=== PATIENT | male | born 1940 | race Caucasian/White ===

== ENCOUNTER 2018-10-25 19:36 | Inpatient (IN) ==
[2018-10-25 20:07] LABS: BASOPHILS # (AUTO) 0.02 10*3/UL; BASOPHILS % (AUTO) 0.1 % (0-1); EOSINOPHILS # (AUTO) 0.01 10*3/UL; EOSINOPHILS % (AUTO) 0.1 % (0-8); Hematocrit [HCT] 35.9 % (42.0-52.0); LYMPHOCYTES # (AUTO) 2.48 10*3/uL; MEAN CORPUSCULAR HGB CONC 30.6 g/dL (33-37); MEAN CORPUSCULAR VOLUME 100.3 FL (80-90); MEAN PLATELET VOLUME 9.1 FL (7.4-12.2); MONOCYTES # (AUTO) 1.59 10*3/UL (0.3-0.8); MONOCYTES % (AUTO) 10.4 % (5-15); NEUTROPHILS # (AUTO) 11.12 10*3/UL; NEUTROPHILS % (AUTO) 72.8 % (50-80); RED BLOOD COUNT 3.58 10^6/uL (4.70-6.10)
[2018-10-25 20:12] LABS: BLOOD UREA NITROGEN 42 mg/dL (7-22); BUN/CREATININE RATIO 26.25 (6-20); SERUM ALBUMIN 3.3 g/dL (3.5-4.8)
--- NOTE | 2018-10-25 20:13 | PDOC ---
Upper Extremity Problem HPI - General Chief Complaint: Upper Extremity Problem/Injury Stated Complaint: Right Arm Edema Date Seen by Provider: 10/25/18 Time Seen by Provider: 19:50 Source: POSITIVE: Patient Exam Limitations: POSITIVE: No limitations Nurse's Notes Reviewed & Considered: Yes - History of Present Illness Initial Comments: The patient is a 78-year-old male who is brought to the emergency department by ambulance from the [facility] with complaints of increased right arm pain and swelling. He fell sometime in September and injured his right shoulder. He apparently underwent workup at that time which was all unremarkable. He is currently at [facility] for rehabilitation. He has been undergoing physical therapy and apparently several days ago after therapy his right arm started hurting worse and subsequently became swollen. The swelling has worsened especially in his right hand. He does have continued increased pain in his right shoulder. He denies any chest pain or increased shortness of breath although he does have some shortness of breath chronically. He apparently previously was on oxygen and CPAP however [facility] not [facility]. His oxygen saturations were in the low 80s when EMS arrived. He was placed on O2 per nasal cannula. He denies any fever. He does have edema in both of his legs which she states worsened after he was given prednisone several weeks ago. - Patient Home Medications Home Medications: Home Medications aspirin 81 mg tablet,delayed release 81 mg PO QDAY 09/29/18 cholecalciferol (vitamin D3) 1,000 unit capsule 1,000 unit PO QDAY 09/29/18 docusate sodium 100 mg tablet 100 mg PO BID 09/29/18 escitalopram 10 mg tablet 10 mg PO QDAY 09/29/18 finasteride 5 mg tablet 5 mg PO QDAY 09/29/18 furosemide 40 mg tablet 40 mg PO QDAY 09/29/18 insulin lispro (U- 100) 100 unit/mL subcutaneous pen 1 - 4 unit SUBCUT QAC ml 09/29/18 levothyroxine 75 mcg tablet 75 mcg PO QDAY 09/29/18 losartan 25 mg tablet 50 mg PO QDAY tab 09/29/18 metoprolol tartrate 50 mg tablet 50 mg PO BID 09/29/18 nystatin 100,000 unit/gram topical cream 1 applic TOPICAL QDAY g 09/29/18 oxycodone-acetaminophen 5 mg-325 mg tablet 1 tab PO Q4H PRN tab 09/29/18 polyethylene glycol 3350 17 gram oral powder packet 17 g PO QDAY 09/29/18 tamsulosin 0.4 mg capsule 0.4 mg PO QDAY 09/29/18 - Patient Allergies Allergies/Adverse Reactions: Allergies Allergy/AdvReac Type Severity Reaction Status Date / Time Influenza Virus Vaccines Allergy Other : Verified 10/25/18 19:58 See Comment naproxen Allergy Other : Verified 10/25/18 19:58 See Comment Past Medical History Past Medical History Reviewed: Other (please comment) ([facility] records reviewed) ROS - Limitations ROS Limitations: No Limitations Constitution: DENIES: Fever Cardiovascular: DENIES: Chest Pain Respiratory: REPORTS: Cough Non Productive, Cough Productive, Shortness Of Breath (Chronic shortness of breath) Neurological: REPORTS: Denies Neuro Symptoms Gastrointestinal: DENIES: Abdominal Pain, Nausea, Vomitting Musculoskeletal: REPORTS: Lower Extremity Swelling, Other (Right arm and hand swelling, right shoulder pain) Eyes: REPORTS: Denies Symptoms ENT: REPORTS: Denies Symptoms Skin: DENIES: Rash Upper Extremity Problem Exam - General Appearance General Appearance: POSITIVE: Alert, Cooperative, No Acute Distress - Upper Extremity Upper Extremity: POSITIVE: Other (Examination of the right upper extremity does reveal marked edema in the entire right upper extremity, good palpable radial pulse in the right wrist. Examination the lower extremities reveals marked edema in the lower extremities bilaterally.) Vascular: POSITIVE: No Vascular Compromise - Skin Skin: POSITIVE: Normal Color, No Rash - Neuro / Psych Peripheral Neuro Exam: POSITIVE: Sensation Normal (Sensation normal to the fingertips in the right hand) - HEENT HEENT: POSITIVE: Head Inspection Nml, Eyes Inspection Nml, Ears Inspection Nml, Nose Inspection Nml, Oral/Dental Inspect. Nml, Pharynx Inspect. Nml - Respiratory / CVS Respiratory / CVS: POSITIVE: No Respiratory Distress, Breath Sounds Normal (Decreased breath sounds bilaterally), Regular Rate & Rhythm, Heart Sounds Normal Peripheral Pulses: Radial (R): 2+ - Abdomen Abdomen: Soft: (All Quadrants), Denies Tenderness: (All Quadrants), No Distention: (All Quadrants) Upper Ext Problem Progress - Results Reviewed by me Xrays/CTs/US Reviewed by me: Yes Discussed with Radiologist: Yes Lab Results Reviewed by Me: Yes CBC and BMP: 10/25/18 19:30 10/25/18 19:30 Lab Results:: Laboratory Results 10/25/18 10/25/18 10/25/18 19:30 19:30 19:30 WBC 15.26 H RBC 3.58 L Hgb 11.0 L Hct 35.9 L MCV 100.3 H MCH 30.7 MCHC 30.6 L RDW Std Deviation 53.0 H RDW Coeff of Joy 14.9 H Plt Count 428 H MPV 9.1 Immature Gran % (Auto) 0.3 Neut % (Auto) 72.8 Lymph % (Auto) 16.3 [place] % (Auto) 10.4 Eos % (Auto) 0.1 Baso % (Auto) 0.1 Immature Gran # (Auto) 0.04 Neut # (Auto) 11.12 Lymph # (Auto) 2.48 [place] # (Auto) 1.59 H Eos # (Auto) 0.01 Baso # (Auto) 0.02 WBC Morphology Comment Normal morphology Plt Morphology Comment Normal morphology RBC Morph Comment Normal morphology APTT D-Dimer 1589 H Sodium 142 Potassium 4.8 Chloride 106 Carbon Dioxide 26 Anion Gap 10 BUN 42 H Creatinine 1.6 H Estimated GFR [employer] [place] BUN/Creatinine Ratio 26.25 H Glucose 197 H Calculated Osmolality 309.0 H Calcium 9.1 Magnesium 1.9 Total Bilirubin 0.5 AST 20 L ALT 19 L Alkaline Phosphatase 100 Troponin I C-Reactive Protein 25.6 H NT-Pro-B Natriuret Pep 8860 H Total Protein 6.2 Albumin 3.3 L Globulin 2.9 Albumin/Globulin Ratio 1.10 L 10/25/18 10/25/18 19:30 19:30 WBC RBC Hgb Hct MCV MCH MCHC RDW Std Deviation RDW Coeff of Joy Plt Count MPV Immature Gran % (Auto) Neut % (Auto) Lymph % (Auto) [place] % (Auto) Eos % (Auto) Baso % (Auto) Immature Gran # (Auto) Neut # (Auto) Lymph # (Auto) [place] # (Auto) Eos # (Auto) Baso # (Auto) WBC Morphology Comment Plt Morphology Comment RBC Morph Comment APTT 28.8 D-Dimer Sodium Potassium Chloride Carbon Dioxide Anion Gap BUN Creatinine Estimated GFR BUN/Creatinine Ratio Glucose Calculated Osmolality Calcium Magnesium Total Bilirubin AST ALT Alkaline Phosphatase Troponin I 0.056 H C-Reactive Protein NT-Pro-B Natriuret Pep Total Protein Albumin Globulin Albumin/Globulin Ratio EKG Interpreted/Reviewed By Me:: Yes EKG Interpretation:: POSITIVE: Normal Sinus Rhythm, Normal Rate, Normal QRS, Normal ST/T, Other (Low-voltage) - Patient's Progress MDM / ED Course: The patient's oxygen saturations were in the low 80s when EMS arrived on scene. He was placed on O2 per nasal cannula with improvement in his oxygen saturations. Initial EKG shows a sinus rhythm with no acute ST segment or T- wave changes. Blood work reveals an elevated white count of 15,000 with a CRP of 25.6. His hemoglobin is 11. His BNP is elevated at 8000 and his troponin is mildly elevated at 0.053. D-dimer is elevated at 1500. His creatinine is elevated at 1.6. Chest x-ray is read as no acute findings per radiologist and x-ray of the right shoulder is read as no acute findings per radiologist. Venous Doppler the right upper extremity is negative for DVT. The patient's clinical presentation is most consistent with worsening CHF with worsening generalized edema. His creatinine is 2 elevated to perform a CTA to rule out PE. His troponin is mildly elevated most likely related to CHF. Findings were discussed with the patient as well as with Dr. New. Dr. Nwe has agreed to admit the patient for further care. - Consult Counseled: POSITIVE: Patient, RE: Lab Results, RE: Radiology Results, RE: DX, RE: Need for F/U Patient Care Time - Estimated PCT Patient Care Time (In Minutes): 30 Vital Signs - Recent Vital Signs Vital Signs: Vital Signs (Last 8 hours) Temp Pulse Resp BP Pulse Ox 10/25/18 19:36 99.6 F 82 20 147/65 90 - VS Reviewed Vital Signs Reviewed: Yes Discharge Clinical Impression: Congestive heart failure, Elevated troponin Discharge Disposition: Admit to Inpatient Condition: Fair Patient Problem(s) Reviewed: Yes Date Decision to Admit to Inpatient: 10/25/18 Time Decision to Admit to Inpatient: 20:50
[2018-10-25 20:17] LABS: PLATELET MORPHOLOGY COMMENT NORMAL MORPHOLOGY (NORM); RBC MORPHOLOGY COMMENT NORMAL MORPHOLOGY (NORM); WBC MORPHOLOGY COMMENT NORMAL MORPHOLOGY (NORM)
[2018-10-25] MEDS ORDERED: LIDOCAINE HCL 2 % 10 ML JELLY URO-JECT TOPICAL PRN ×2 (20:48→23:04)
--- NOTE | 2018-10-25 21:05 | PDOC ---
HPI - History of Present Illness History of Present Illness: Is a very nice 78-year-old gentleman who lives at [facility] comes to the ER with right arm pain and swelling. He injured his shoulder in September and he has had the [facility] for rehabilitation dilatation a few days ago his arm started hurting after PT session. Denies any chest pain at present time but he is short of breath and hypoxic at around 80% when EMS went and got a was placed on oxygen. In the ER patient looked severely with acute exacerbation of CHF and right arm swelling. I explained to them that needs to come in to the hospital for diuresis he does have acute kidney injury and positive troponins if things get worse or her creatinine increases he will have to be [facility] is he agrees to this Past Medical History Medical History: Congestive heart failure, coronary artery disease, depression, arthritis, obesity, hypothyroidism Tobacco Use: Never Smoker In the Past 12 Months, Have Used or Abuse Any of the Following Substance: None Medication / Allergies Home Medications: Home Medications Medication Instructions Recorded Confirmed aspirin 81 mg tablet,delayed 81 mg PO QDAY 09/29/18 10/25/18 release cholecalciferol (vitamin D3) 1,000 1,000 unit PO QDAY 09/29/18 10/25/18 unit capsule docusate sodium 100 mg tablet 100 mg PO BID 09/29/18 10/25/18 escitalopram 10 mg tablet 10 mg PO QDAY 09/29/18 10/25/18 finasteride 5 mg tablet 5 mg PO QDAY 09/29/18 10/25/18 furosemide 40 mg tablet 40 mg PO QDAY 09/29/18 10/25/18 insulin lispro (U- 100) 100 1 - 4 unit SUBCUT QAC ml 09/29/18 10/25/18 unit/mL subcutaneous pen levothyroxine 75 mcg tablet 75 mcg PO QDAY 09/29/18 10/25/18 losartan 25 mg tablet 50 mg PO QDAY tab 09/29/18 10/25/18 metoprolol tartrate 50 mg tablet 50 mg PO BID 09/29/18 10/25/18 nystatin 100,000 unit/gram topical 1 applic TOPICAL QDAY g 09/29/18 10/25/18 cream oxycodone-acetaminophen 5 mg-325 1 tab PO Q4H PRN tab 09/29/18 10/25/18 mg tablet polyethylene glycol 3350 17 gram 17 g PO QDAY 09/29/18 10/25/18 oral powder packet tamsulosin 0.4 mg capsule 0.4 mg PO QDAY 09/29/18 10/25/18 Allergies/Adverse Reactions: Allergies Allergy/AdvReac Type Severity Reaction Status Date / Time Influenza Virus Vaccines Allergy Other : Verified 10/25/18 19:58 See Comment naproxen Allergy Other : Verified 10/25/18 19:58 See Comment Review of Systems - Review of Systems All Systems: Reviewed & No Additional Complaints Except as Stated - Respiratory Respiratory: DENIES: Negative System Review, Cough, Sputum, Dyspnea At Rest, Dyspnea with Exertion, Pleuritic Pain, Hemoptysis, Wheezing, Other, See HPI - Cardiovascular Cardiovascular: DENIES: Negative System Review, Chest Pain, Edema, Syncope, Palpitations, Orthopnea, Paroxysmal Nocturnal Dyspnea, Other, See HPI - Gastrointestinal Gastrointestinal / Abdominal: DENIES: Negative System Review, Nausea, Vomiting, Diarrhea, Constipation, Abdominal Pain, Bloody Stool, Poor Appetite, Heartburn, Regurgitation, Bloating, Lactose Intolerance, Melena, Bright Red Blood per Rectum, Other, See HPI Exam - Vitals Vital Signs: Vital Signs Temperature 99.6 F Temperature Source Temporal Artery Scan Pulse Rate [Pulse Oximeter] 82 Respiratory Rate 20 Blood Pressure [Left Radial 147/65 Artery] Pulse Ox 90 Oxygen Flow Rate 2 Oxygen Delivery Method Nasal Cannula Height 5 ft 10 in Weight 277 lb - General General Appearance: No Acute Distress, Cooperative - Eye Eye Exam: POSITIVE: Normal Appearance, PERRL, EOMI, No Scleral Icterus - Neck Neck Exam: Normal Inspection, Full ROM, No Tenderness, No Lymphadenopathy, No Thyromegaly, JVP is not Raised - Respiratory Respiratory Exam: POSITIVE: Decreased Breath Sounds - Cardiovascular Cardiovascular Exam: POSITIVE: RRR, No Murmur, No Clicks, No Gallops, No Rubs, PMI Non-Displaced - GI/Abdominal GI/Abdominal Exam: POSITIVE: Normal Bowel Sounds, Non Tender, Non Distended, Soft, No Masses, No Hepatomegaly, No Splenomegaly, No Organomegaly - Extremities Extremities Exam: POSITIVE: +2 Edema - Neurological Neurological Exam: POSITIVE: Alert, Oriented x 3, No Facial Droop, Speech Intact / Clear, Moves All Extremities Equally Results - Labs CBC and BMP: 10/25/18 19:30 10/25/18 19:30 Assessment and Plan - Patient Problems (1) Congestive heart failure Current Visit: Yes Status: Acute Code(s): I50.9 - Heart failure, unspecified (2) Acute kidney injury Current Visit: Yes Status: Acute Code(s): N17.9 - Acute kidney failure, unspecified (3) Troponin I above reference range Current Visit: Yes Status: Acute Code(s): R74.8 - Abnormal levels of other serum enzymes - Assessment / Plan Additional Assessment/Plan Details: #1 acute exacerbation of CHF admit the patient and patient for telemetry protocol Galvez catheter Lasix drip he will be very hard to diuresis considering he has chronic renal failure we will have to monitor this very closely he might need be transferred to higher level of care if indices worsen repeat labs in a.m. I explained this to the patient and agrees #2 Acute kidney injury see #1 #3 right arm swelling patient is getting an ultrasound of his right arm but sure there is no DVT is d-dimer is elevated unable to do a CTA to rule out PE patient is hypoxic we'll start heparin drip since he also has positive troponin and the choice of hypertension is also has renal failure
--- NOTE | 2018-10-25 21:35 | DI ---
EXAM: XR Chest, 1 View CLINICAL HISTORY: ITS.REASON hypoxia Physician Notes: Tech Comments: TECHNIQUE: Frontal view of the chest. COMPARISON: No relevant prior studies available. FINDINGS: Lungs: Unremarkable. No consolidation. Pleural space: Unremarkable. No pneumothorax. Heart: No pneumomediastinum. Mediastinum: Unremarkable. Bones/joints: No definite fracture. IMPRESSION: No acute findings.
--- NOTE | 2018-10-25 21:43 | DI ---
EXAM: XR Right Shoulder Complete, 2 or More Views CLINICAL HISTORY: ITS.REASON right shoulder pain Physician Notes: Tech Comments: TECHNIQUE: Two or more views of the right shoulder. COMPARISON: No relevant prior studies available. FINDINGS: Bones/joints: Unremarkable. No acute fracture. No dislocation. Soft tissues: Unremarkable. IMPRESSION: Normal right shoulder x-rays.
--- NOTE | 2018-10-25 22:22 | DI ---
EXAM: US Duplex Right Upper Extremity Veins CLINICAL HISTORY: ITS.REASON right arm swelling/pain Physician Notes: Tech Comments: TECHNIQUE: Real-time duplex ultrasound scan of the right upper extremity veins integrating B-mode two-dimensional vascular structure, Doppler spectral analysis, color flow Doppler imaging and compression. COMPARISON: No relevant prior studies available. FINDINGS: Deep veins: Unremarkable. No DVT in the internal jugular, subclavian, axillary, or brachial veins. The veins demonstrate normal color flow, are normally compressible, with normal phasic flow and/or augmentation response. Superficial veins: Unremarkable. No thrombus in the visualized basilic and cephalic veins. Soft tissues: No suspicious findings. IMPRESSION: Normal right upper extremity duplex venous ultrasound.
[2018-10-25] MEDS ORDERED: Heparin Drip 25,000 UNIT/500 ML BAG IV SCH (22:47)
[2018-10-25] MEDS ORDERED: LIDOCAINE W/ SODIUM BICARB 0.5 ML SYR SUBD PRN (22:47)
[2018-10-25] MEDS ORDERED: HEPARIN 5000 UNIT/1 ML IV ONE (23:17)
[2018-10-25] MEDS ORDERED: Sodium Chloride 0.9% 1,000 ML PRIMARY IV SCH (23:30)
[2018-10-26 05:00] LABS: Hematocrit [HCT] 31.8 % (42.0-52.0); Hemoglobin [HGB] 9.7 g/dL (14.0-18.0); MEAN CORPUSCULAR HGB CONC 30.5 g/dL (33-37); MEAN PLATELET VOLUME 9.2 FL (7.4-12.2); RED BLOOD COUNT 3.18 10^6/uL (4.70-6.10)
[2018-10-26 05:23] LABS: BLOOD UREA NITROGEN 43 mg/dL (7-22); BUN/CREATININE RATIO 30.71 (6-20); SERUM ALBUMIN 2.7 g/dL (3.5-4.8)
[2018-10-26 05:44] LABS: PLATELET MORPHOLOGY COMMENT SEE COMMENTS (NORM); RBC MORPHOLOGY COMMENT SEE COMMENTS (NORM); WBC MORPHOLOGY COMMENT NORMAL MORPHOLOGY (NORM)
[2018-10-26 05:45] LABS: BAND NEUTROPHILS % 0 % (0-10); BASOPHILS % (MANUAL) 0 % (0-1); EOSINOPHILS % (MANUAL) 0 % (0-8); MONOCYTES % (MANUAL) 8 % (0-12); NEUTROPHILS % (MANUAL) 74 % (50-80)
[2018-10-26] MEDS: LEVOTHYROXINE 75 MCG TABLET PO SCH (05:57)
[2018-10-26] MEDS: oxyCODONE-ACETAMINOPHEN 5-325 TAB PO PRN (08:08)
--- NOTE | 2018-10-26 09:11 | PDOC(PROG) ---
Date of Service: 10/26/18 Time of Service: 09:19 Interval History: Subjective Patient was sent to the hospital because of pain in right shoulder and swelling in the right arm. He said that 2 months ago he ended up in [facility] after he fell he did have swelling and pain in the arm according to him they gave him some steroid and had worsening swelling according to him in the legs, However the pain and the swelling in the arm apparently improved after the steroid. He was transferred to [facility] for rehabilitation. He said 3 days ago he was working on the bicycle and he started to have pain in the shoulder and then progressively the arm got swollen. He was able to get up and walk with a walker the previous day's but not yesterday and hence they sent into the ER. He denied shortness of breath denied chest pain. He did say that the he was on CPAP and oxygen before being admitted [facility] but not since then. He said he can't move or lift his right arm because of the pain in the shoulder and the arm. Objective : Data - Labs CBC and BMP: 10/26/18 04:50 10/26/18 04:50 Objective : Exam - General General Appearance: No Acute Distress, Cooperative, Morbidly Obese - Head Head Exam: Normal Inspection - Eye Eye Exam: Normal Appearance - ENT ENT Exam: Normal Exam - Neck Neck Exam: Normal Inspection - Respiratory Respiratory Exam: Clear to Auscultation - Bilaterally - Cardiovascular Cardiovascular Exam: RRR - GI/Abdominal GI/Abdominal Exam: Normal Bowel Sounds, Non Tender, Non Distended, Soft, No Organomegaly - Rectal Rectal Exam: Deferred - External Exam: Deferred - Extremities Additional Extremities Exam Details: Had evidence of for some edema bilaterally in both legs and chronic dermatitic changes present. The right arm is swollen and is tender multiple joints are swollen and tender. Movement of the wrist is causing pain. There is some warmth to the arm and some tenderness at different spots. Pulses strong. No evidence of cellulitis - Neurological Neurological Exam: Alert, Oriented x 3, CN II-XII Intact, No Facial Droop, Speech Intact / Clear - Psychiatric Psychiatric Exam: Normal Affect - Integumentary Integumentary Exam: Normal Color Assessment and Plan - Patient Problems (1) Right shoulder pain Current Visit: Yes Status: Acute Comment: There is right around pain and swelling, etiology unclear. Elevated CRP suggested maybe some inflammatory arthritis. It seems he did have a response in the past to steroid. I think we'll check ESR, will do x-rays of the arm. Will send LEOPOLDO, rheumatoid factor, will check uric acid. I did speak with Dr. Chappell to have a look at him. May consider starting him on low dose of steroid and see his response. Code(s): M25.511 - Pain in right shoulder (2) Congestive heart failure Current Visit: Yes Status: Acute Comment: His BNP is elevated he is denying symptoms though the chest x-ray was read as normal. He was started on Lasix because of the edema. he may have an underlying CHF I think we'll continue with the Lasix drip for the edema itself. I think the arm edema seems to be more like inflammatory condition. Code(s): I50.9 - Heart failure, unspecified (3) Troponin I above reference range Current Visit: Yes Status: Acute Comment: There is a note from Dr. Shin that he had elevated troponin before. It did not go higher so I think we can stop the heparin and put him on prophylactic heparin instead. Elevated d-dimer is probably secondary to underlying inflammatory condition. Code(s): R74.8 - Abnormal levels of other serum enzymes (4) Hypoxia Current Visit: Yes Status: Acute Comment: He has a history of obstructive sleep apnea may be that playing parts in the hypoxia itself. Code(s): R09.02 - Hypoxemia (5) Chronic kidney disease Current Visit: Yes Status: Acute Comment: Based on the notes from Dr. Shin had an elevated creatinine before was 2 at one point in time. Code(s): N18.9 - Chronic kidney disease, unspecified
[2018-10-26] MEDS: Metoprolol TARTRATE Tab 50 MG TAB PO SCH ×2 (09:16→20:26)
[2018-10-26] MEDS: FINASTERIDE 5 MG TABLET PO SCH (09:16)
[2018-10-26] MEDS: ESCITALOPRAM 10 MG TABLET PO SCH (09:16)
[2018-10-26] MEDS: TAMSULOSIN 0.4 MG CAPSULE PO SCH (09:17)
[2018-10-26] MEDS: POLYETHYLENE GLYCOL 3350 17 GM POWDER PO SCH (09:17)
[2018-10-26] MEDS: ASPIRIN EC 81 MG TABLET PO SCH (09:17)
[2018-10-26] MEDS: NYSTATIN 15 GM CREAM TOPICAL SCH (09:18)
--- NOTE | 2018-10-26 10:15 | DI ---
RIGHT ELBOW EXAM, 10/26/2018 9:08 AM: Clinical History: Right elbow pain. Comparison Study: None at this facility. Views: AP and lateral. Soft Tissues: There is extensive edema of the subcutaneous fat from at least the distal third of the upper arm to the proximal half of the forearm. No soft tissue gas is present. There is no radiopaque foreign body. Effusion: No joint effusion present. Joints: Cartilaginous surfaces intact. Arthritic changes are present in the radiohumeral and ulnohume ral joints with bony spurring. Bones: No fracture or dislocation. There is a bony spur arising from the cortex of the midshaft of th e radius, probably related to old trauma. Reading: Extensive edema of the subcutaneous fat from the lower portion of the upper arm to the midportion of the forearm. This may represent cellulitis.
--- NOTE | 2018-10-26 10:21 | DI ---
RIGHT FOREARM EXAM, 10/26/2018 9:08 AM: Clinical History: Right forearm pain. Comparison Study: None at this facility. Views: AP and lateral. Soft Tissues: Extensive edema is present in the subcutaneous fat of the lower half of the upper arm a nd the entire forearm and extending into the hand. The fascial margins of the proximal forearm and th e visualized upper arm are relatively sharply defined. Those of the distal forearm and over the hand are less well-defined. This is compared visualization of the distal muscle fascia margins could repre sent inflammatory/infiltrative change involving the muscles as well as the subcutaneous fat. Effusion: No joint effusion present. Joints: Cartilaginous surfaces intact. Bones: No fracture or dislocation. Readin. Extensive edema of the subcutaneous fat from the upper arm to the hand. The margins between the s ubcutaneous fat and muscles of the distal forearm are less well defined than those of the proximal fo rearm and the upper arm. This may represent inflammatory/infiltrative change of the muscles of the di stal forearm such as a deep cellulitis. This should be correlated with the clinical presentation. 2. No fracture or dislocation.
--- NOTE | 2018-10-26 10:24 | EKG ---
[address] [address] Measurements Intervals [place] Rate: 68 P: -31 WA: 178 QRS: 151 QRSD: 99 T: 0 QT: 325 QTc: 342 Interpretive Statements SINUS RHYTHM PATTERN CONSISTENT WITH PULMONARY DISEASE POSSIBLE RIGHT VENTRICULAR HYPERTROPHY [SOME/ALL OF: PROMINENT R IN V1, LATE TRANSITION, RAD, KAREN, SSS] No previous ECG available for comparison Electronically Signed On 10-26-18 14:52:55 MDT by Tom Kulkarni MD [email or web address]
[2018-10-26] MEDS ORDERED: methylPREDNISolone 40 MG/1 ML VIAL IVP ONE ×2 (11:38→21:00)
--- NOTE | 2018-10-26 11:55 | CONSULT ---
Consult Note - Consult Reason for Consult: Orthopedic Consult Primary Care Provider: Elham Mendoza APRN - History of Present Illness History of Present Illness: I was asked by Dr. Pelayo to consult on this 78-year-old gentleman with right upper extremity pain and swelling. The etiology of this is not clear. He has had right shoulder pain for 20+ years. 2 months ago he received some IV steroids by Dr. Bush in [place] according to the patient. This is because of right shoulder pain and swelling. He told me that the swelling improved somewhat at that time. He has a history of COPD and diabetes. He currently has been residing in the [facility]. He has been working with occupational therapist there on the arm bike and using a walker etc. The therapist told me that up until about 3 days ago he was able to maneuver the arm bike with his right upper extremity. About 3 days ago things seem to get worse. Specifically he developed pain and swelling in his upper extremity. He was admitted I believe yesterday for congestive heart failure and hypoxia. I was asked to consult on his arm. Patient complains of soreness in his shoulder elbow and wrist. No specific joint is more painful than the other. He states that he does not feel sick. Has not had a fever. No known history of rheumatoid arthritis or gout by his history. He told me that he had "a cold for the past 3-4 weeks". Examination reveals a pleasant male lying in hospital bed. Left upper extremity has IVs in place. The left upper extremity moves fairly freely. Right upper extremity is obviously edematous. He prefers not to move the shoulder elbow wrist or hand. No cellulitis that I can see. Temperature of the right upper extremity is slightly warm but not really that in different from the other side. There is pitting edema throughout the right upper extremity. I am able to move his wrist elbow and shoulder in a limited fashion although painfully. No abscess that I can palpate anywhere along the right upper extremity. X-rays of the right shoulder elbow and forearm were reviewed after being obtained today. All the joints appear to be fairly normal. The only obvious finding is soft tissue edema and interstitial edema throughout the elbow and forearm. White blood cell count on admission was 15,000 with no left shift. C-reactive protein was 25. White blood cell count today is down slightly to 13,000, also with no left shift. C-reactive protein 23. Uric acid is high at 8.4. Impression: Right upper extremity pain and edema. Tenderness to demonstrate polymyalgia and polyarthralgia of unknown etiology. He may have a gout flareup manifesting in the right upper extremity. This also may have something to do with his previous viral illness that he described a couple weeks ago. I don't believe he has a septic joint at this point in time since he has multiple joints involved. Plan: I discussed this case with Dr. Pelayo. We will try him first with IV methylprednisolone. Hopefully this will improve his condition. If not, other options would be to MRI his shoulder or possibly aspirate the shoulder and/or elbow under fluoroscopic guidance if necessary. So far he is not on any antibiotic therapy. If he has an inflammatory type of arthritis, he should respond with steroid. We will await the results of the blood tests that Dr. Pelayo has sent off. Alex for consultation visit. Total time spent 45 minutes Past Medical History Medical History: Congestive heart failure, coronary artery disease, depression, arthritis, obesity, hypothyroidism Tobacco Use: Never Smoker In the Past 12 Months, Have Used or Abuse Any of the Following Substance: None Medication / Allergies Home Medications: Home Medications Medication Instructions Recorded Confirmed aspirin 81 mg tablet,delayed 81 mg PO QDAY 09/29/18 10/25/18 release cholecalciferol (vitamin D3) 1,000 1,000 unit PO QDAY 09/29/18 10/25/18 unit capsule docusate sodium 100 mg tablet 100 mg PO BID 09/29/18 10/25/18 escitalopram 10 mg tablet 10 mg PO QDAY 09/29/18 10/25/18 finasteride 5 mg tablet 5 mg PO QDAY 09/29/18 10/25/18 furosemide 40 mg tablet 40 mg PO QDAY 09/29/18 10/25/18 insulin lispro (U- 100) 100 1 - 4 unit SUBCUT QAC ml 09/29/18 10/25/18 unit/mL subcutaneous pen levothyroxine 75 mcg tablet 75 mcg PO QDAY 09/29/18 10/25/18 losartan 25 mg tablet 50 mg PO QDAY tab 09/29/18 10/25/18 metoprolol tartrate 50 mg tablet 50 mg PO BID 09/29/18 10/25/18 nystatin 100,000 unit/gram topical 1 applic TOPICAL QDAY g 09/29/18 10/25/18 cream oxycodone-acetaminophen 5 mg-325 1 tab PO Q4H PRN tab 09/29/18 10/25/18 mg tablet polyethylene glycol 3350 17 gram 17 g PO QDAY 09/29/18 10/25/18 oral powder packet tamsulosin 0.4 mg capsule 0.4 mg PO QDAY 09/29/18 10/25/18 Allergies/Adverse Reactions: Allergies Allergy/AdvReac Type Severity Reaction Status Date / Time Influenza Virus Vaccines Allergy Other : Verified 10/25/18 19:58 See Comment naproxen Allergy Other : Verified 10/25/18 19:58 See Comment Exam - Vitals Vital Signs: Vital Signs Temperature 98.2 F Temperature Source Oral Pulse Rate [Pulse Oximeter] 68 Pulse Rate [Left hand] 68 Pulse Rate 66 Respiratory Rate 20 Blood Pressure [Left Radial 162/62 Artery] Pulse Ox [Left hand] 99 Pulse Ox 97 Oxygen Flow Rate [Left hand] 2 Oxygen Flow Rate 2 Oxygen Delivery Method [Left Nasal Cannula hand] Oxygen Delivery Method Nasal Cannula Height 5 ft 10 in Weight 277 lb Results - Labs CBC and BMP: 10/26/18 04:50 10/26/18 04:50
[2018-10-26] MEDS: Insulin Lispro Flexpen 300 UNIT/3 ML INSULN.PEN SUBCUT SCH (17:05)
[2018-10-26] MEDS: HEPARIN 5000 UNIT/1 ML SUBCUT SCH (20:26)
[2018-10-27] MEDS: LEVOTHYROXINE 75 MCG TABLET PO SCH (04:43)
[2018-10-27] MEDS: HEPARIN 5000 UNIT/1 ML SUBCUT SCH ×3 (04:43→20:25)
[2018-10-27 05:19] LABS: BASOPHILS # (AUTO) 0 10*3/UL; BASOPHILS % (AUTO) 0 % (0-1); EOSINOPHILS # (AUTO) 0 10*3/UL; EOSINOPHILS % (AUTO) 0 % (0-8); Hematocrit [HCT] 33.7 % (42.0-52.0); Hemoglobin [HGB] 10.3 g/dL (14.0-18.0); LYMPHOCYTES # (AUTO) 1.24 10*3/uL; MEAN CORPUSCULAR HGB CONC 30.6 g/dL (33-37); MEAN PLATELET VOLUME 9.8 FL (7.4-12.2); MONOCYTES # (AUTO) 0.53 10*3/UL (0.3-0.8); MONOCYTES % (AUTO) 4.2 % (5-15); NEUTROPHILS # (AUTO) 10.94 10*3/UL; NEUTROPHILS % (AUTO) 85.7 % (50-80); RED BLOOD COUNT 3.44 10^6/uL (4.70-6.10)
[2018-10-27 05:21] LABS: PLATELET MORPHOLOGY COMMENT NORMAL MORPHOLOGY (NORM); RBC MORPHOLOGY COMMENT NORMAL MORPHOLOGY (NORM); WBC MORPHOLOGY COMMENT NORMAL MORPHOLOGY (NORM)
[2018-10-27 05:35] LABS: BLOOD UREA NITROGEN 55 mg/dL (7-22); BUN/CREATININE RATIO 36.66 (6-20)
[2018-10-27] MEDS: Insulin Lispro Flexpen 300 UNIT/3 ML INSULN.PEN SUBCUT SCH ×3 (07:03→16:25)
--- NOTE | 2018-10-27 07:49 | PDOC(PROG) ---
Date of Service: 10/27/18 Time of Service: 07:45 Interval History: Subjective Patient feel a little bit better he said. Pain in the right arm seems to be less. He is able to raise his arm. He is able to turn his hand. The swelling is also maybe a little bit less. He is denying shortness of breath. Objective : Data - Labs CBC and BMP: 10/27/18 04:50 10/27/18 04:50 Objective : Exam - General General Appearance: No Acute Distress, Cooperative, Morbidly Obese - Head Head Exam: Normal Inspection - Eye Eye Exam: Normal Appearance - ENT ENT Exam: Normal Exam - Neck Neck Exam: Normal Inspection - Respiratory Respiratory Exam: Clear to Auscultation - Bilaterally - Cardiovascular Cardiovascular Exam: RRR - GI/Abdominal GI/Abdominal Exam: Normal Bowel Sounds, Non Tender, Non Distended, Soft, No Organomegaly - Rectal Rectal Exam: Deferred - External Exam: Deferred - Extremities Additional Extremities Exam Details: The edema in his legs seem to be less than yesterday. The swelling in the right arm also seemed to be less than before. Is not as tender as before. He is able to lift his arm up and he couldn't do that yesterday. Able to turn his hand. - Back Back Exam: Normal Inspection - Neurological Neurological Exam: Alert, Oriented x 3, CN II-XII Intact, No Facial Droop, Speech Intact / Clear - Psychiatric Psychiatric Exam: Normal Affect - Integumentary Integumentary Exam: Normal Color Assessment and Plan - Patient Problems (1) Right shoulder pain Current Visit: Yes Status: Acute Comment: I think we'll continue with the steroid, will switch him to by mouth steroid. The etiology is not clear whether he has polyarticular gout or other inflammatory condition. Code(s): M25.511 - Pain in right shoulder (2) Congestive heart failure Current Visit: Yes Status: Acute Comment: I think will switch the Lasix drip to intermittent boluses. Code(s): I50.9 - Heart failure, unspecified (3) Troponin I above reference range Current Visit: Yes Status: Acute Comment: His troponin is abnormal from before. Code(s): R74.8 - Abnormal levels of other serum enzymes (4) Hypoxia Current Visit: Yes Status: Acute Comment: He is on oxygen continue, continue lasix Code(s): R09.02 - Hypoxemia (5) Chronic kidney disease Current Visit: Yes Status: Acute Comment: His BUN is rising so we'll DC the Lasix drip and switch him to intermittent Lasix. Will repeat his chemistry tomorrow. Code(s): N18.9 - Chronic kidney disease, unspecified (6) Diabetes Current Visit: Yes Status: Acute Comment: continue sliding scale. Code(s): E11.9 - Type 2 diabetes mellitus without complications
[2018-10-27] MEDS: POLYETHYLENE GLYCOL 3350 17 GM POWDER PO SCH (08:46)
[2018-10-27] MEDS: Metoprolol TARTRATE Tab 50 MG TAB PO SCH ×2 (08:47→20:25)
[2018-10-27] MEDS: ESCITALOPRAM 10 MG TABLET PO SCH (08:47)
[2018-10-27] MEDS: PANTOPRAZOLE 40 MG TABLET PO SCH (08:47)
[2018-10-27] MEDS: FINASTERIDE 5 MG TABLET PO SCH (08:47)
[2018-10-27] MEDS: TAMSULOSIN 0.4 MG CAPSULE PO SCH (08:47)
[2018-10-27] MEDS: predniSONE Tab 20 MG TAB PO SCH (08:48)
[2018-10-27] MEDS: ASPIRIN EC 81 MG TABLET PO SCH (08:48)
[2018-10-27] MEDS: NYSTATIN 15 GM CREAM TOPICAL SCH (08:49)
[2018-10-27] MEDS: oxyCODONE-ACETAMINOPHEN 5-325 TAB PO PRN (11:21)
[2018-10-27] MEDS: FUROSEMIDE 10 MG/1 ML - 4 ML IVP SCH (12:52)
--- NOTE | 2018-10-27 16:23 | OTI REPORT ---
Thank you for the referral of Jessee Hughes. He was seen on 10/27/18 for an occupational therapy inpatient evaluation secondary to weakness. SUBJECTIVE: The patient is a 78-year-old male who came into the hospital this weekend from the [facility] with weakness and right arm pain. The patient reports a month or so ago he was in the [facility]. He did have an apartment in [place] but he was admitted to the hospital and required swingbed therapy and the [facility] was the closest room available. In the meantime, it does sound like the patient has lost his apartment; however, the patient is hoping to get back out into the community at some point. The patient was brought in to our hospital this weekend. The patient reports his arm started hurting after he had done the arm bike in therapy. He states the next day it was sore and then the following day he almost couldn't tolerate the pain and couldn't transfer independently like before. The patient does report he was using a walker and requiring min assist for dressing tasks at the long-term. PAST MEDICAL HISTORY: Past medical history can be found in the patient's medical record. OBJECTIVE FINDINGS: General observations: The patient was in bed upon the therapist's arrival. Range of motion: The patient demonstrated functional range of motion with the left upper extremity and 0 degrees of range of motion with the right shoulder and approximately 20 total degrees of elbow motion in the right arm. Edema: The patient's edema is severe and pitting in the right upper extremity; although it seems severe in all four extremities. Bed mobility: The patient reports he needed four people to move from supine to sitting edge of bed yesterday; although today he was able to complete this with min assist x2. Activities of daily living: Once seated, the patient required max assist for lower extremity dressing as the patient is unable to reach his feet. Once standing, the patient wasn't really able to help with pulling his pants up over his hips. The patient was able to don a shirt with mod assist with assistance for the right arm due to pain and limited range of motion. Once dressed, the patient was able to complete some grooming including brushing his hair with his left upper extremity; although he reported he is right handed and struggled getting his left arm high enough to brush the right side of the back of his head, so he did require min assist with that. Transfers: The patient completed a functional transfer over to the wheelchair. He required min assist to transfer from sit to stand and contact guard assist for stand pivot transfer into the wheelchair. ASSESSMENT: The patient does qualify for skilled therapy. Problem List: Decreased range of motion in the shoulder Increased pain Decreased independence with ADLs Occupational Therapy Goals: To be met by discharge from inpatient: Patient will be able to complete upper and lower extremity dressing with min assist only using adaptive equipment if necessary. Patient will be able to complete functional transfers with contact guard assist only. Patient will increase shoulder motion on the right to 45 degrees of flexion and abduction and 90 degrees total motion of the elbow. TREATMENT PLAN: Patient will be seen B.I.D during the week and one time per day over the weekend as an inpatient to address the above goals and objectives. INITIAL TREATMENT: Treatment today consisted of the initial evaluation followed by the patient being wheeled down to therapy where he completed red digi-flex x10 minutes on and off to help decrease the swelling in his right hand. BEN
--- NOTE | 2018-10-27 16:55 | PTI REPORT ---
Thank you for the referral of Jessee Hughes. He was seen on 10/27/18 for an inpatient evaluation secondary to congestive heart failure and weakness. SUBJECTIVE: The patient is a 78-year-old male who is currently residing at the [facility]. He was admitted over the weekend secondary to congestive heart failure and weakness. He is having troubles with his transfers and ambulation and prior to his hospitalization had been able to walk to and from all meals and was independent with his transfers at the [facility]. He also states that he is having a great deal of right shoulder pain and was doing exercise at the [facility] on the arm bike and about two or three days ago, woke up in the morning with 8/10 pain in his right shoulder and was unable to move it overhead. PAST MEDICAL HISTORY: Past medical history can be found in the patient's medical record. OBJECTIVE FINDINGS: Range of motion: The patient demonstrates pain free cervical spine movement through available movement. His left shoulder has functional range of motion with no pain. His right shoulder has only 10 degrees of flexion and abduction with 8/10 pain. Edema: He has significant swelling of that right upper arm and Grade III pitting edema in the hand. Both lower extremities have chronic Grade III pitting edema and he has Circ-Aids as an edema reduction pressure tool for the [facility]. Strength: The patient demonstrated poor core strength and weak hips and lower extremities. Transfers: The patient was able to come from sit to stand with minimal assist of one. Ambulation: The patient was able to ambulate approximately 20 feet with a walker with wheels and minimal assist of one. ASSESSMENT: Problem List: Decreased strength and range of motion Increased edema Decreased ability to complete transfers and ambulation Physical Therapy Goals: To be met by discharge from inpatient: Patient will be able to transfer from bed to stand independently. Patient will be able to ambulate 300 feet independently with least restrictive assistive device. Patient will have some good active return of right shoulder range of motion without pain. Patient will decrease swelling and edema throughout all extremities. TREATMENT PLAN: Patient will be seen B.I.D during the week and one time per day over the weekend as an inpatient to address the above goals and objectives. INITIAL TREATMENT: Treatment today consisted of the initial evaluation secondary to transfer training, strengthening of the lower extremities, edema reduction of the right upper extremity, and some pain control measures for the right shoulder. BEN
--- NOTE | 2018-10-27 16:57 | PT PM DAY ---
Diagnosis : Weakness/CHF PM - Physical Therapy S: The patient reports no new changes. O: The patient was brought to the therapy department via wheelchair. He received an application of moist heat pack x20 minutes including set up to the right shoulder followed by edema control to the right hand. He performed open chain strengthening exercises to both lower extremities, sit to stands, transfers, and functional movement. He ambulated with a wheeled walker from the therapy department all the way back to his room, over 1500 feet with stand by assist of one. A: The patient is on three liters of oxygen but did not need to stop for a rest on the way back to his room. The patient made significant improvement this afternoon. P: Continue seeing patient BID during the week and one time per day over the weekend for transfers, ambulation, and range of motion/strengthening exercises. MTDD
--- NOTE | 2018-10-27 18:02 | ORTHO.PROG ---
Last Taken Vital Signs: Vital Signs - Last Taken Temperature 97.6 F 10/27/18 16:18 Pulse Rate 54 L 10/27/18 16:18 Respiratory Rate 20 10/27/18 16:18 Blood Pressure 137/51 10/27/18 16:18 Pulse Ox 96 10/27/18 16:18 Subjective: Patient sitting up in chair eating dinner. States that he feels much better. L ess pain in his right upper extremity. Being treated with steroid only currently. Objective: Vital signs stable patient afebrile. Right upper extremity less swollen. No r edness. Able to move the hand and wrist today. Able to actively flex at the elbow. Much less tender around the shoulder White blood cell count 12,000. 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 Patient much improved today. Plan: Plan: Is to continue oral steroid. Anticipate that patient will continue to improve. I will follow-up with him as needed.
--- NOTE | 2018-10-27 20:10 | OT.PROG ---
Progress Note Progress Note: S: pt reported weakness in his entire R UE. O: pt was seen in his room and was already sitting in W/c prior to therapy arrival. He completed putty, blue/yellow powerweb, red digiflex, RTb in all planes x15, bicep curls 1#, and micro to hand to decrease inflammation. HIs hand was wrapped for swelling by PT. A: pt still demo weakness in RUE and swelling is still present. He may continue to benefit from therapy to return to full function. P: continue per POC.
[2018-10-28 04:40] LABS: BASOPHILS # (AUTO) 0 10*3/UL; BASOPHILS % (AUTO) 0 % (0-1); EOSINOPHILS # (AUTO) 0 10*3/UL; EOSINOPHILS % (AUTO) 0 % (0-8); Hematocrit [HCT] 31.8 % (42.0-52.0); Hemoglobin [HGB] 9.7 g/dL (14.0-18.0); MEAN CORPUSCULAR HGB CONC 30.5 g/dL (33-37); MEAN CORPUSCULAR VOLUME 97.5 FL (80-90); MEAN PLATELET VOLUME 9.3 FL (7.4-12.2); MONOCYTES % (AUTO) 8.9 % (5-15); NEUTROPHILS % (AUTO) 77.2 % (50-80); RED BLOOD COUNT 3.26 10^6/uL (4.70-6.10)
[2018-10-28 04:42] LABS: PLATELET MORPHOLOGY COMMENT NORMAL MORPHOLOGY (NORM); RBC MORPHOLOGY COMMENT NORMAL MORPHOLOGY (NORM); WBC MORPHOLOGY COMMENT NORMAL MORPHOLOGY (NORM)
[2018-10-28] MEDS: LEVOTHYROXINE 75 MCG TABLET PO SCH (04:47)
[2018-10-28] MEDS: HEPARIN 5000 UNIT/1 ML SUBCUT SCH ×3 (04:47→20:15)
[2018-10-28 05:07] LABS: BLOOD UREA NITROGEN 71 mg/dL (7-22); BUN/CREATININE RATIO 50.71 (6-20)
[2018-10-28] MEDS: Insulin Lispro Flexpen 300 UNIT/3 ML INSULN.PEN SUBCUT SCH ×3 (06:43→16:38)
[2018-10-28] MEDS: PANTOPRAZOLE 40 MG TABLET PO SCH (06:44)
[2018-10-28] MEDS: FUROSEMIDE 10 MG/1 ML - 4 ML IVP SCH (06:44)
--- NOTE | 2018-10-28 07:33 | PDOC(PROG) ---
Date of Service: 10/28/18 Time of Service: 07:30 Interval History: Subjective Patient feels better, he is able to raise his right arm more, able to make a fist. He is able to turn his right hand. He is denying shortness of breath. Objective : Data - Labs CBC and BMP: 10/28/18 04:05 10/28/18 04:05 Objective : Exam - General General Appearance: No Acute Distress, Cooperative, Morbidly Obese - Head Head Exam: Normal Inspection - Eye Eye Exam: Normal Appearance - ENT ENT Exam: Normal Exam - Neck Neck Exam: Normal Inspection - Respiratory Respiratory Exam: Clear to Auscultation - Bilaterally - Cardiovascular Cardiovascular Exam: RRR - GI/Abdominal GI/Abdominal Exam: Normal Bowel Sounds, Non Tender, Non Distended, Soft, No Organomegaly - Rectal Rectal Exam: Deferred - External Exam: Deferred - Extremities Extremities Exam: Normal Inspection - Back Back Exam: Normal Inspection - Neurological Neurological Exam: Alert, Oriented x 3, CN II-XII Intact, No Facial Droop, Speech Intact / Clear Additional Neurological Exam Details: His range of movement in the right arm joints all improved. - Psychiatric Psychiatric Exam: Normal Affect - Integumentary Integumentary Exam: Normal Color Assessment and Plan - Patient Problems (1) Right shoulder pain Current Visit: Yes Status: Acute Comment: Looks like inflammatory arthritis either gout or other inflammatory condition it is not clear. I think we'll continue 40 mg dose of prednisone today we'll start tapering off tomorrow. Probably will [facility]. Code(s): M25.511 - Pain in right shoulder (2) Congestive heart failure Current Visit: Yes Status: Acute Comment: He has a history of cardiomyopathy. His BUN is rising so I think will DC the Lasix today will see what's his chemistry tomorrow and decide about when to restart his Lasix and probably put him on by mouth. Will order an ECHO for him to have tomorrow. Code(s): I50.9 - Heart failure, unspecified (3) Hypoxia Current Visit: Yes Status: Acute Comment: He said he was on oxygen before he went to the hospital. So he has underlying hypoxia. Sarah will go back on O2 to the prison. Code(s): R09.02 - Hypoxemia (4) Chronic kidney disease Current Visit: Yes Status: Acute Comment: Continue monitoring his chemistry. Code(s): N18.9 - Chronic kidney disease, unspecified (5) Diabetes Current Visit: Yes Status: Acute Comment: Continue insulin. Code(s): E11.9 - Type 2 diabetes mellitus without complications (6) Hypertension Current Visit: Yes Status: Acute Comment: Continue metoprolol I think will restart his losartan. Code(s): I10 - Essential (primary) hypertension
[2018-10-28] MEDS: predniSONE Tab 20 MG TAB PO SCH (08:30)
[2018-10-28] MEDS: Metoprolol TARTRATE Tab 50 MG TAB PO SCH ×2 (08:30→20:15)
[2018-10-28] MEDS: ESCITALOPRAM 10 MG TABLET PO SCH (08:30)
[2018-10-28] MEDS: TAMSULOSIN 0.4 MG CAPSULE PO SCH (08:30)
[2018-10-28] MEDS: FINASTERIDE 5 MG TABLET PO SCH (08:30)
[2018-10-28] MEDS: LOSARTAN 25 MG TABLET PO SCH (08:30)
[2018-10-28] MEDS: POLYETHYLENE GLYCOL 3350 17 GM POWDER PO SCH (08:30)
[2018-10-28] MEDS: ASPIRIN EC 81 MG TABLET PO SCH (08:30)
[2018-10-28] MEDS: NYSTATIN 15 GM CREAM TOPICAL SCH (08:35)
--- NOTE | 2018-10-28 11:39 | OT.PROG ---
Progress Note Progress Note: pt stated that he was feeling better and agreed to therapy. O: tx consisted of STS x1 with MOD A, functional ambulation to toilet with use of FWW and CGA for safety, functional toilet transfer with MIN A for safety, doffing of LE clothing with MIN A, toileting tasks independently, toileting hygiene with MAX A donning LE clothing with MOD A, functional transfer off toilet to sink where pt completed brushing hair independently, transfer to w/c with MIN A for stability and safety with transfer. A: pt tolerated session well. pt overall is improving in strength and functional ambulation. pt needs assist when he becomes fatigued. P: continue POC
--- NOTE | 2018-10-28 12:09 | PT.PROG ---
Progress Note Progress Note: S. Patient stated that he is feeling better compared to yesterday, however still complains of pain in his shoulder. O. Patient was wheeled to the therapy gym where he had heat to his shoulder and ultrasound with phono to decrease pain. Patient then performed seated exercises in the form of; long arc quads, heel toe raises, ball squeezes, clam shells, resisted knee flexion, marches and sit to stands x 15 with 5# weights and green thera bands. Patient performed sit to stands x 10 and ambulated 175 feet back to his room where he was left in his chair with alarm and call light. A. Patient tolerated therapy well this morning, he was able to perform all exercises with no increase in pain or problems. Patient would continue to benefit from skilled therapy to increase strength, endurance and safety. P. Continue POC.
--- NOTE | 2018-10-28 16:30 | OT.PROG ---
Progress Note Progress Note: S: pt thinks he feels better today. He reported that the Dr thinks he may be able to d/c tomorrow. O: pt was seen in therapy after completing transfer downstairs by PT. He completed B FM strengthening with putty, clothspins, powerweb, digi flex, rice to enhance intrinsic muscle ability. He then received micro massage to UE hand to decrease swelling and glove was placed for swelling as well. He completed functional transfer entire way back to his room apprx 300 ft. A: pt has demonstrated ability to increase activity tolerance through his transfers. He is still having quite a bit of RUE pain and loss of overall ROM. P: continue per POC.
--- NOTE | 2018-10-28 17:08 | PT.PROG ---
Progress Note Progress Note: S. Patient stated that he is feeling better today. O. Patient transferred to the wheelchair and was wheeled to the therapy gym where he performed seated long arc quads, heel toe raises, ball squeezes, clam shells, resisted knee flexion marches all 2x15 with 5# and green thera bands. Patient was left with OT for further therapy. A. Patient tolerated therapy well, he continues to struggle with weakness and would continue to benefit from skilled therapy to increase strength, endurance and safety at this time. P. Continue POC.
[2018-10-29] MEDS: HEPARIN 5000 UNIT/1 ML SUBCUT SCH ×3 (04:37→21:04)
[2018-10-29] MEDS: LEVOTHYROXINE 75 MCG TABLET PO SCH (04:37)
[2018-10-29 05:39] LABS: BLOOD UREA NITROGEN 81 mg/dL (7-22)
[2018-10-29] MEDS: PANTOPRAZOLE 40 MG TABLET PO SCH (08:39)
[2018-10-29] MEDS: LOSARTAN 25 MG TABLET PO SCH (08:39)
[2018-10-29] MEDS: ASPIRIN EC 81 MG TABLET PO SCH (08:39)
[2018-10-29] MEDS: predniSONE Tab 20 MG TAB PO SCH (08:40)
[2018-10-29] MEDS: FINASTERIDE 5 MG TABLET PO SCH (08:41)
[2018-10-29] MEDS: TAMSULOSIN 0.4 MG CAPSULE PO SCH (08:42)
[2018-10-29] MEDS: Metoprolol TARTRATE Tab 50 MG TAB PO SCH ×2 (08:42→21:04)
[2018-10-29] MEDS ORDERED: Albumin Human Soln 25% 25 GM/100 ML IV.SOLN IV ONE (08:43)
[2018-10-29] MEDS: Insulin Lispro Flexpen 300 UNIT/3 ML INSULN.PEN SUBCUT SCH ×3 (08:44→17:06)
[2018-10-29] MEDS: POLYETHYLENE GLYCOL 3350 17 GM POWDER PO SCH (08:45)
[2018-10-29] MEDS: ESCITALOPRAM 10 MG TABLET PO SCH (08:47)
[2018-10-29] MEDS: NYSTATIN 15 GM CREAM TOPICAL SCH (08:50)
[2018-10-29] MEDS ORDERED: Sodium Chloride 0.9% 500 ML PRIMARY IV SCH (09:00)
--- NOTE | 2018-10-29 09:09 | PDOC(PROG) ---
Date of Service: 10/29/18 Time of Service: 09:00 Interval History: Subjective Feels better his right arm movements and pain improved. Denying shortness of breath. Objective : Data - Labs CBC and BMP: 10/28/18 04:05 10/29/18 04:40 Objective : Exam - General General Appearance: No Acute Distress, Cooperative, Obese - Head Head Exam: Normal Inspection - Eye Eye Exam: Normal Appearance - ENT ENT Exam: Normal Exam - Neck Neck Exam: Normal Inspection - Respiratory Respiratory Exam: Clear to Auscultation - Bilaterally - Cardiovascular Cardiovascular Exam: RRR - GI/Abdominal GI/Abdominal Exam: Normal Bowel Sounds, Non Tender, Non Distended, Soft, No Organomegaly - Rectal Rectal Exam: Deferred - External Exam: Deferred - Extremities Additional Extremities Exam Details: Swelling in the right arm is less than before. Range of motion is also improved. - Back Back Exam: Normal Inspection - Neurological Neurological Exam: Alert, Oriented x 3, CN II-XII Intact - Psychiatric Psychiatric Exam: Normal Affect - Integumentary Integumentary Exam: Normal Color Assessment and Plan - Patient Problems (1) Right shoulder pain Current Visit: Yes Status: Acute Comment: Continue steroid at a lower dosage. Code(s): M25.511 - Pain in right shoulder (2) Congestive heart failure Current Visit: Yes Status: Acute Comment: This is a stabilized. His BUN is higher today at 81, I held the Lasix yesterday I think will give a small amount of fluid and keep him overnight and repeat his chemistry tomorrow. Code(s): I50.9 - Heart failure, unspecified (3) Hypoxia Current Visit: Yes Status: Acute Comment: Continue oxygen Code(s): R09.02 - Hypoxemia (4) Chronic kidney disease Current Visit: Yes Status: Acute Comment: As I said his BUN is higher part of it may be secondary to Lasix another thing maybe due to the steroid but I think will give a small amount of fluid repeat his chemistry tomorrow if things better we'll send him back to the retirement. Code(s): N18.9 - Chronic kidney disease, unspecified (5) Diabetes Current Visit: Yes Status: Acute Comment: Continue sliding scale Code(s): E11.9 - Type 2 diabetes mellitus without complications (6) Hypertension Current Visit: Yes Status: Acute Comment: Same medication Code(s): I10 - Essential (primary) hypertension
--- NOTE | 2018-10-29 11:30 | PT.PROG ---
Progress Note Progress Note: S. Patient stated he is feeling better everyday. O. Patient was wheeled to the therapy gym where he performed seated exercises in the form of; long arc quads, heel toe raises, ball squeezes, clam shells, resisted knee flexion, marches, all x 20 bilaterally with green thera band and 5# weights. Patient performed sit to stands x 10, then ambulated 175 feet back to his room where he was left in his chair with alarm and call light. A. Patient tolerated therapy fair this morning, he was able to perform all exerc ises with no increase in pain or problems. Patient would continue to benefit from skilled therapy to increase strength, endurance and safety. P. Continue POC.
--- NOTE | 2018-10-29 14:07 | OT.PROG ---
Progress Note Progress Note: S: pt reported he thinks he may get his catheter out, which sounds like he would prefer to keep it. O: pt completed functional transfer apprx 75 ft with no breaks before sittin in w/c. He completed sit to stand from w/c and completed transfer apprx 15 ft using standard walker. He completed Ue exercises with RTB in all planes with LUE and with R only bicep flex and rows. He completed putty, and digi flex x25. A: pt may continue to benefit from therapy to reduce pain and in RUE, although it does appear to be slowly improving. P: continue per POC.
--- NOTE | 2018-10-29 15:43 | OT.PROG ---
Progress Note Progress Note: S: pt stated that his shoulder and his L knee were hurting today. O: tx consisted of AROM of all joints in R UE for edema management, edema massage to right hand, forearm and upper arm. A: pt tolerated session well. pt had some pain with AROM but doing well. P: continue POC
--- NOTE | 2018-10-29 17:00 | PT.PROG ---
Progress Note Progress Note: S. Patient stated that he would like to stay in his room this afternoon. O. Patient performed seated exercises in the form of; long arc quads, heel toe raises, balls squeezes, clam shells, resisted knee flexion all x 20 bilaterally. A. Patient's lower extremities present with pitting edema, he would continue to benefit from skilled therapy to increase strength, endurance and safety at this time. P. Continue POC.
[2018-10-30 05:34] LABS: BLOOD UREA NITROGEN 71 mg/dL (7-22); BUN/CREATININE RATIO 59.16 (6-20)
[2018-10-30] MEDS: HEPARIN 5000 UNIT/1 ML SUBCUT SCH (05:40)
[2018-10-30] MEDS: LEVOTHYROXINE 75 MCG TABLET PO SCH (05:40)
[2018-10-30 07:03] VITALS: BP 155/59; RESP 16; TEMP 97.6
[2018-10-30] MEDS: PANTOPRAZOLE 40 MG TABLET PO SCH (07:14)
[2018-10-30] MEDS: Insulin Lispro Flexpen 300 UNIT/3 ML INSULN.PEN SUBCUT SCH (07:15)
--- NOTE | 2018-10-30 08:19 | DCSUMMARY ---
Hospitalization Summary Admit Date: 10/25/2018 Discharge Date: 10/30/18 Hospital Course: Discharge diagnoses 1. Right arm pain and swelling, question polyarticular gout versus atypical presentation of symmetrical seronegative polyarticular arthritis with pitting edema 2. History of diabetes 3. History of hypertension 4. History of hypothyroidism 5. History of cardiomyopathy unclear type 6. Hypoxemia on oxygen 7. Depression 8. History of prostate cancer 9. Probable chronic kidney disease stage III 10. Minimal elevation in troponin probably chronic Hospital course This is a 78 years old male with medical history significant for history of cardiomyopathy unknown type, hypertension, diabetes, hypothyroidism, obesity, history of hypoxemia on oxygen before, probable chronic kidney disease who was sent to the hospital from [facility] with complaint of increased right arm pain and swelling. He is been at the [facility] transferred there from [facility] for rehabilitation. He said his symptoms only started a few days prior to admission started hurting while doing some sort of physical therapy. The pain and swelling got worse. And because of that he was sent to the hospital. He was found to be hypoxemic in the ER. Apparently he said he was on oxygen and CPAP before getting admitted to [facility] where they took him off that. He had multiple tests in the ER including a ultrasound of the arm and that was negative for DVT. His BNP was elevated troponin was also mildly elevated. He did haveand elevated white count, his CRP was elevated and he was admitted to the hospital by Dr. New please see his note. He was put on Lasix drip and also on heparin drip. I saw him the second day of admission. He denied chest pain, denied shortness of breath his main complaint was the arm swelling and pain. The arm in certain areas was tender was painful to move the wrist or fingers. There is area of synovitis. Did do x-rays of the arm showed subcutaneous edema. Impression that we had was that the inflammatory arthritis either gout or other inflammatory condition. We did send a rheumatoid factor and LEOPOLDO. Rheumatoid factor was elevated significance of it is unclear because his symptoms were asymmetrical. LEOPOLDO and cyclic anti-citrulline antibody were negative. the uric acid was somewhat elevated at 8.4. After talking to him he agreed to be on steroid as he will had he the fear of having more swelling with it. His ESR was elevated CRP was elevated. so We did give him a steroid and he did respond to it he started to have less pain and less swelling of the arm he was able to move it. Potentially this may be polyarticular gout versus atypical presentation of symmetrical seronegative polyarticular arthritis with pitting edema. Elevated rheumatoid factor maybe just because of his age. if He has recurrence of symptoms may consider starting him on uric acid lowering medication. to see whether that would lower recurrence of his symptoms. I did DC his IV Lasix drip and switch him to boluses and then held it as is the BUN kept rising. Did give him small amount of fluid also. I did DC his heparin and I thought the d-dimer elevation is secondary to inflammatory condition. We did not pursue more testing for the elevated d-dimer. On the day of discharge he was feeling better felt that he could be discharged back to the care home. I did speak with Dr. Shin and let them know about his hospital course. We were unable to do an echocardiogram because windshield technician was unavailable. I did suggest that to Dr. Shin. Discharge instruction Diet regular Activity as tolerated Medication Please see the discharge list from the care home Condition at discharge was stable for discharge Exam - Vitals Vital Signs: Vital Signs Temperature 97.6 F Temperature Source Temporal Artery Scan Pulse Rate [Apical] 57 Pulse Rate [Pulse Oximeter] 65 Pulse Rate [Left hand] 63 Pulse Rate 69 Respiratory Rate 16 Blood Pressure [Right Arm] 157/62 Blood Pressure [Right Radial 139/62 Artery] Blood Pressure [Left Arm] 158/59 Blood Pressure [Left Radial 155/59 Artery] Pulse Ox [Left hand] 99 Pulse Ox 99 Oxygen Flow Rate [Left hand] 3 Oxygen Flow Rate 3 Oxygen Delivery Method [Left Nasal Cannula hand] Oxygen Delivery Method Nasal Cannula Height 5 ft 10 in Weight 296 lb 4 oz - General General Appearance: No Acute Distress, Cooperative, Obese - Head Head Exam: Normal Inspection - Eye Eye Exam: POSITIVE: Normal Appearance - ENT ENT Exam: POSITIVE: Normal Exam - Neck Neck Exam: Normal Inspection - Respiratory Respiratory Exam: POSITIVE: Clear to Auscultation - Bilaterally - Cardiovascular Cardiovascular Exam: POSITIVE: RRR - GI/Abdominal GI/Abdominal Exam: POSITIVE: Normal Bowel Sounds, Non Tender, Non Distended, Soft, No Organomegaly - Rectal Rectal Exam: POSITIVE: Deferred - External Exam: POSITIVE: Deferred - Extremities Additional Extremities Exam Details: Chronic dermatitic changes in the lower extremities. The swelling in the right zee and the pain and the tenderness seemed to be improved. Range of motion also improved. - Back Back Exam: POSITIVE: Normal Inspection - Neurological Neurological Exam: POSITIVE: Alert, CN II-XII Intact, No Facial Droop, Speech Intact / Clear, Moves All Extremities Equally - Psychiatric Psychiatric Exam: POSITIVE: Normal Affect Patient Problems - Patient Problem List (1) Right shoulder pain Status: Acute Code(s): M25.511 - Pain in right shoulder Category: Medical (2) Congestive heart failure Status: Acute Code(s): I50.9 - Heart failure, unspecified Category: Medical (3) Hypoxia Status: Acute Code(s): R09.02 - Hypoxemia Category: Medical (4) Chronic kidney disease Status: Acute Code(s): N18.9 - Chronic kidney disease, unspecified Category: Medical (5) Diabetes Status: Acute Code(s): E11.9 - Type 2 diabetes mellitus without complications Category: Medical (6) Hypertension Status: Acute Code(s): I10 - Essential (primary) hypertension Category: Medical
[2018-10-30] MEDS: Metoprolol TARTRATE Tab 50 MG TAB PO SCH (08:37)
[2018-10-30] MEDS: FINASTERIDE 5 MG TABLET PO SCH (08:37)
[2018-10-30] MEDS: TAMSULOSIN 0.4 MG CAPSULE PO SCH (08:37)
[2018-10-30] MEDS: predniSONE Tab 20 MG TAB PO SCH (08:38)
[2018-10-30] MEDS: ASPIRIN EC 81 MG TABLET PO SCH (08:38)
[2018-10-30] MEDS: ESCITALOPRAM 10 MG TABLET PO SCH (08:39)
[2018-10-30] MEDS: LOSARTAN 25 MG TABLET PO SCH (08:40)
[2018-10-30] MEDS: NYSTATIN 15 GM CREAM TOPICAL SCH (08:41)
[2018-10-30] MEDS: POLYETHYLENE GLYCOL 3350 17 GM POWDER PO SCH (08:41)
[2018-10-30 09:09] VITALS: O2SAT 95
== END 2018-10-30 11:22 | DRG 293 ==
LOC: ER 19:36 → MED/SURG 21:56
PROVIDERS: ADMIT Internal Medicine; ATTEND Internal Medicine

== ENCOUNTER 2019-01-07 10:00 | Inpatient (IN) ==
[2019-01-07] MEDS ORDERED: Sodium Chloride 0.9% 1,000 ML PRIMARY IV ONE (10:28)
[2019-01-07 10:50] LABS: BASOPHILS # (AUTO) 0.02 10*3/UL; BASOPHILS % (AUTO) 0.2 % (0-1); EOSINOPHILS # (AUTO) 0.14 10*3/UL; EOSINOPHILS % (AUTO) 1.7 % (0-8); Hematocrit [HCT] 32.7 % (42.0-52.0); Hemoglobin [HGB] 9.5 g/dL (14.0-18.0); LYMPHOCYTES # (AUTO) 1.51 10*3/uL; MEAN CORPUSCULAR HGB CONC 29.1 g/dL (33-37); MEAN CORPUSCULAR VOLUME 95.6 FL (80-90); MEAN PLATELET VOLUME 8.8 FL (7.4-12.2); MONOCYTES # (AUTO) 0.99 10*3/UL (0.3-0.8); MONOCYTES % (AUTO) 11.9 % (5-15); NEUTROPHILS # (AUTO) 5.68 10*3/UL; RED BLOOD COUNT 3.42 10^6/uL (4.70-6.10)
[2019-01-07 10:53] LABS: PLATELET MORPHOLOGY COMMENT NORMAL MORPHOLOGY (NORM); RBC MORPHOLOGY COMMENT NORMAL MORPHOLOGY (NORM); WBC MORPHOLOGY COMMENT NORMAL MORPHOLOGY (NORM)
[2019-01-07 11:06] LABS: BLOOD UREA NITROGEN 71 mg/dL (7-22); BUN/CREATININE RATIO 39.44 (6-20); SERUM ALBUMIN 3.5 g/dL (3.5-4.8)
[2019-01-07 11:18] LABS: VENOUS PH 7.39 (7.32-7.42)
[2019-01-07 13:52] LABS: BILIRUBIN,URINE NEGATIVE (NEG); CLARITY,URINE CLEAR (CLEAR); COLOR,URINE YELLOW (Y); GLUCOSE, URINE (UA) NEGATIVE (NEG); PH,URINE 6.5 (5.0-8.5); PROTEIN,URINE NEGATIVE (NEG); UROBILINOGEN,URINE 0.2 EU/dL (0.2)
[2019-01-07 13:57] LABS: OCCULT BLOOD,URINE TRACE (NEG); URINE SAMPLE TYPE CATH SPECIMEN
[2019-01-07 14:00] LABS: BACTERIA,URINE FEW; RBC,URINE RARE /hpf; WBC,URINE RARE
[2019-01-07] MEDS ORDERED: ONDANSETRON 4 MG/2 ML VIAL IVP PRN (15:24)
[2019-01-07] MEDS ORDERED: CALCIUM CARBONATE 500 MG (TUMS) CHEWABLE TABLET PO PRN (15:24)
[2019-01-07] MEDS ORDERED: LIDOCAINE W/ SODIUM BICARB 0.5 ML SYR SUBD PRN (15:24)
[2019-01-07] MEDS ORDERED: ACETAMINOPHEN 325 MG TABLET PO PRN (15:24)
[2019-01-07] MEDS: HEPARIN 5000 UNIT/1 ML SUBCUT SCH ×2 (16:03→23:14)
[2019-01-07] MEDS: ASPIRIN EC 81 MG TABLET PO SCH (17:37)
[2019-01-07] MEDS ORDERED: FUROSEMIDE 10 MG/1 ML - 4 ML IVP ONE (20:49)
[2019-01-07] MEDS: TAMSULOSIN 0.4 MG CAPSULE PO SCH (21:06)
[2019-01-07] MEDS: Metoprolol TARTRATE Tab 50 MG TAB PO SCH (21:07)
[2019-01-08] MEDS: LEVOTHYROXINE 75 MCG TABLET PO SCH (05:15)
[2019-01-08 05:46] LABS: BUN/CREATININE RATIO 35.55 (6-20)
[2019-01-08] MEDS: HEPARIN 5000 UNIT/1 ML SUBCUT SCH ×3 (07:22→23:21)
[2019-01-08] MEDS ORDERED: CHOLECALCIFEROL 1000 IU TABLET PO SCH (09:00)
[2019-01-08] MEDS: PANTOPRAZOLE 40 MG TABLET PO SCH (09:25)
[2019-01-08] MEDS: Metoprolol TARTRATE Tab 50 MG TAB PO SCH ×2 (09:25→21:38)
[2019-01-08] MEDS: ESCITALOPRAM 10 MG TABLET PO SCH (09:26)
[2019-01-08] MEDS: FINASTERIDE 5 MG TABLET PO SCH (09:26)
[2019-01-08] MEDS: ASPIRIN EC 81 MG TABLET PO SCH (09:26)
[2019-01-08] MEDS ORDERED: FUROSEMIDE 10 MG/1 ML - 4 ML IVP ONE (10:47)
[2019-01-08] MEDS: FUROSEMIDE 10 MG/1 ML - 4 ML IVP SCH (16:36)
[2019-01-08] MEDS: TAMSULOSIN 0.4 MG CAPSULE PO SCH (21:38)
[2019-01-08] MEDS: NYSTATIN 15 GM POWDER TOPICAL SCH (21:38)
[2019-01-09] MEDS: LEVOTHYROXINE 75 MCG TABLET PO SCH (04:40)
[2019-01-09] MEDS: FUROSEMIDE 10 MG/1 ML - 4 ML IVP SCH ×2 (07:32→13:35)
[2019-01-09] MEDS: HEPARIN 5000 UNIT/1 ML SUBCUT SCH ×3 (07:33→23:03)
[2019-01-09] MEDS: NYSTATIN 15 GM POWDER TOPICAL SCH ×2 (08:36→21:16)
[2019-01-09] MEDS: ESCITALOPRAM 10 MG TABLET PO SCH (08:40)
[2019-01-09] MEDS: PANTOPRAZOLE 40 MG TABLET PO SCH (08:41)
[2019-01-09] MEDS: FINASTERIDE 5 MG TABLET PO SCH (08:41)
[2019-01-09] MEDS: oxyCODONE-ACETAMINOPHEN 5-325 TAB PO PRN ×2 (08:42→16:25)
[2019-01-09] MEDS: Metoprolol TARTRATE Tab 50 MG TAB PO SCH ×2 (08:42→21:16)
[2019-01-09] MEDS: CHOLECALCIFEROL (VITAMIN D3) 5,000 IU CAPSULE PO SCH (08:42)
[2019-01-09] MEDS: ASPIRIN EC 81 MG TABLET PO SCH (13:35)
[2019-01-09] MEDS: TAMSULOSIN 0.4 MG CAPSULE PO SCH (21:16)
[2019-01-10 05:32] LABS: BUN/CREATININE RATIO 38.12 (6-20)
[2019-01-10] MEDS: LEVOTHYROXINE 75 MCG TABLET PO SCH (05:33)
[2019-01-10] MEDS: FUROSEMIDE 10 MG/1 ML - 4 ML IVP SCH ×2 (08:08→14:37)
[2019-01-10] MEDS: HEPARIN 5000 UNIT/1 ML SUBCUT SCH ×3 (08:09→23:37)
[2019-01-10] MEDS: CHOLECALCIFEROL (VITAMIN D3) 5,000 IU CAPSULE PO SCH (09:48)
[2019-01-10] MEDS: PANTOPRAZOLE 40 MG TABLET PO SCH (09:48)
[2019-01-10] MEDS: FINASTERIDE 5 MG TABLET PO SCH (09:48)
[2019-01-10] MEDS: ASPIRIN EC 81 MG TABLET PO SCH (09:49)
[2019-01-10] MEDS: ESCITALOPRAM 10 MG TABLET PO SCH (09:50)
[2019-01-10] MEDS: Metoprolol TARTRATE Tab 50 MG TAB PO SCH ×2 (09:51→20:00)
[2019-01-10] MEDS: NYSTATIN 15 GM POWDER TOPICAL SCH ×2 (14:34→20:00)
[2019-01-10] MEDS: TAMSULOSIN 0.4 MG CAPSULE PO SCH (20:00)
[2019-01-11] MEDS: LEVOTHYROXINE 75 MCG TABLET PO SCH (04:37)
[2019-01-11] MEDS: HEPARIN 5000 UNIT/1 ML SUBCUT SCH ×2 (07:24→17:50)
[2019-01-11] MEDS: FUROSEMIDE 10 MG/1 ML - 4 ML IVP SCH (07:24)
[2019-01-11] MEDS: ASPIRIN EC 81 MG TABLET PO SCH (08:29)
[2019-01-11] MEDS: CHOLECALCIFEROL (VITAMIN D3) 5,000 IU CAPSULE PO SCH (08:29)
[2019-01-11] MEDS: ESCITALOPRAM 10 MG TABLET PO SCH (08:29)
[2019-01-11] MEDS: PANTOPRAZOLE 40 MG TABLET PO SCH (08:29)
[2019-01-11] MEDS: Metoprolol TARTRATE Tab 50 MG TAB PO SCH ×2 (08:30→21:35)
[2019-01-11] MEDS: FINASTERIDE 5 MG TABLET PO SCH (08:30)
[2019-01-11] MEDS: NYSTATIN 15 GM POWDER TOPICAL SCH (08:30)
[2019-01-11 09:24] LABS: BLOOD UREA NITROGEN 58 mg/dL (7-22); BUN/CREATININE RATIO 36.25 (6-20); SERUM ALBUMIN 3.4 g/dL (3.5-4.8)
[2019-01-11] MEDS: FUROSEMIDE 20 MG TABLET PO SCH (13:18)
[2019-01-11] MEDS: TAMSULOSIN 0.4 MG CAPSULE PO SCH (21:35)
[2019-01-12] MEDS: NYSTATIN 15 GM POWDER TOPICAL SCH ×2 (00:58→09:13)
[2019-01-12] MEDS: HEPARIN 5000 UNIT/1 ML SUBCUT SCH ×2 (01:09→07:26)
[2019-01-12] MEDS: LEVOTHYROXINE 75 MCG TABLET PO SCH (04:42)
[2019-01-12] MEDS: FUROSEMIDE 20 MG TABLET PO SCH (07:27)
[2019-01-12 07:54] VITALS: BP 129/53; RESP 20; TEMP 97.5; O2SAT 97
[2019-01-12] MEDS: ASPIRIN EC 81 MG TABLET PO SCH (08:25)
[2019-01-12] MEDS: FINASTERIDE 5 MG TABLET PO SCH (08:25)
[2019-01-12] MEDS: ESCITALOPRAM 10 MG TABLET PO SCH (08:25)
[2019-01-12] MEDS: Metoprolol TARTRATE Tab 50 MG TAB PO SCH (08:25)
[2019-01-12] MEDS: PANTOPRAZOLE 40 MG TABLET PO SCH (08:25)
[2019-01-12] MEDS: CHOLECALCIFEROL (VITAMIN D3) 5,000 IU CAPSULE PO SCH (08:25)
== END 2019-01-12 10:55 | DRG 948 ==
LOC: ER 10:00 → MED/SURG 15:17
PROVIDERS: ADMIT Family Medicine; ATTEND Family Medicine